=== PATIENT | female | born 1995 | race Caucasian/White ===

== ENCOUNTER 2016-12-02 17:26 | Emergency (ER) | payer SELFPAY ==
[~2016-12-02] VITALS: Ht 144.8 cm; Wt 60.0 kg
[2016-12-02 17:40] VITALS: BP 149/83
== END 2016-12-02 20:04 | disposition left against medical advice (07) ==
LOC: EMS 17:29
DX: F91.9 Conduct disorder, unspecified (principal); F12.90 Cannabis use, unspecified, uncomplicated; F17.210 Nicotine dependence, cigarettes, uncomplicated; Z53.21 Procedure and treatment not carried out due to patient leaving prior to being seen by health care provider

== ENCOUNTER 2016-12-03 14:27 | Inpatient (IN) | payer OTHER ==
[~2016-12-03] VITALS: Ht 152.4 cm; Wt 57.2 kg
[2016-12-03 14:46] LABS: BASOPHILS # (AUTO) 0.04 K/uL (0.00-0.20); BASOPHILS % (AUTO) 0.5 % (0.0-2.0); EOSINOPHILS # (AUTO) 0.09 K/uL (0.00-0.70); EOSINOPHILS % (AUTO) 1.09 % (1.0-6.0); HEMATOCRIT 41.8 % (36-46); HEMOGLOBIN 14.1 g/dL (12.0-16.0); LYMPHOCYTES # (AUTO) 3.2 K/uL (1.0-4.8); LYMPHOCYTES % (AUTO) 39.2 % (22.0-44.0); MEAN CORPUSCULAR HEMOGLOBIN 30.4 pg (26.0-34.0); MEAN CORPUSCULAR HGB CONC 33.7 G/dL (31.0-37.0); MEAN CORPUSCULAR VOLUME 90 fL (80-100); MONOCYTES # (AUTO) 0.3 K/uL (0.1-1.0); MONOCYTES % (AUTO) 3.2 % (2.0-9.0); NEUTROPHILS # (AUTO) 4.5 K/uL (1.8-7.7); PLATELET COUNT (AUTO) 272 K/uL (150-450); RED BLOOD CELL COUNT(AUTO) 4.63 MIL/uL (4.00-5.20); RED CELL DISTRIBUTION WIDTH 13.7 % (11.5-14.5); WHITE BLOOD COUNT (AUTO) 8.1 K/uL (4.5-11.0)
[2016-12-03 14:57] LABS: ANION GAP 12 mmol/L (8-16); CALCIUM, TOTAL 8.9 mg/dL (8.8-10.5); CARBON DIOXIDE 24 mmol/L (22-29); CHLORIDE 101 mmol/L (98-107); CREATININE 0.83 mg/dL (0.60-1.30); GLOMERULAR FILTR. RATE CALC > 60 mL/min (>60); POTASSIUM 3.5 mmol/L (3.5-5.1); SODIUM SERUM 137 mmol/L (136-145); UREA NITROGEN, BLOOD 11 mg/dL (7-18)
[2016-12-03 15:03] LABS: ALANINE AMINOTRANSFERASE 21 U/L (12-78); ALBUMIN 4.2 g/dL (3.4-5.0); ASPARTATE AMINOTRANSFERASE 24 U/L (15-37); BILIRUBIN,TOTAL 1.1 mg/dL (0.1-1.0); TOTAL PROTEIN, SERUM 7.7 g/dL (6.4-8.2)
[2016-12-03] MEDS ORDERED: LORazepam 2 MG/ML VIAL IM ONE (16:00)
[2016-12-03] MEDS ORDERED: HALOPERIDOL LACTATE 5 MG/ML VIAL IM ONE (16:00)
[2016-12-03] MEDS ORDERED: DiphenhydrAMINE HCL 50 MG/ML VIAL IM ONE (16:00)
[2016-12-03 16:43] LABS: CHOL/HDL RATIO 2.8 (3.9-5.7)
[2016-12-03 19:50] VITALS: BP 101/64
[2016-12-04 06:57] VITALS: BP 105/68
[2016-12-04 09:08] VITALS: BP 118/60
[2016-12-04 16:00] VITALS: BP 131/83
[2016-12-05 05:34] VITALS: BP 130/88
[2016-12-05 08:18] VITALS: BP 101/57
[2016-12-05] MEDS: SERTRALINE HCL 50 MG TABLET PO SCH (08:41)
[2016-12-05] MEDS: OLANZapine 5 MG TABLET PO SCH (08:41)
[2016-12-05 16:26] VITALS: BP 110/66
[2016-12-05] MEDS: ZOLPIDEM TARTRATE 10 MG TABLET PO PRN (22:47)
[2016-12-06 06:31] VITALS: BP 107/79
[2016-12-06] MEDS: SERTRALINE HCL 50 MG TABLET PO SCH (08:21)
[2016-12-06] MEDS: OLANZapine 5 MG TABLET PO SCH (08:21)
[2016-12-06 08:54] VITALS: BP 114/82
[2016-12-06 16:00] VITALS: BP 125/76
[2016-12-06] MEDS: ZOLPIDEM TARTRATE 10 MG TABLET PO PRN (21:13)
[2016-12-07 02:20] VITALS: BP 134/82
[2016-12-07] MEDS: LORazepam 2 MG TABLET PO PRN (02:21)
[2016-12-07 08:15] VITALS: BP 138/71
[2016-12-07] MEDS: SERTRALINE HCL 50 MG TABLET PO SCH (09:04)
[2016-12-07] MEDS: OLANZapine 5 MG TABLET PO SCH (09:04)
[2016-12-07 16:25] VITALS: BP 138/80
[2016-12-07] MEDS: ZOLPIDEM TARTRATE 10 MG TABLET PO PRN (21:04)
[2016-12-08 05:37] VITALS: BP 134/75
[2016-12-08] MEDS: OLANZapine 5 MG TABLET PO SCH ×2 (08:31→21:00)
[2016-12-08] MEDS: SERTRALINE HCL 50 MG TABLET PO SCH (08:31)
[2016-12-08 09:44] VITALS: BP 132/81
[2016-12-08 16:50] VITALS: BP 118/72
[2016-12-08] MEDS ORDERED: DiphenhydrAMINE HCL 50 MG/ML VIAL IM ONE (20:30)
[2016-12-08] MEDS ORDERED: HALOPERIDOL LACTATE 5 MG/ML VIAL IM ONE (20:30)
[2016-12-08] MEDS ORDERED: LORazepam 2 MG/ML VIAL IM ONE (20:30)
[2016-12-09 06:20] VITALS: BP 122/68
[2016-12-09 08:39] VITALS: BP 123/57
[2016-12-09] MEDS: OLANZapine 5 MG TABLET PO SCH (09:12)
[2016-12-09] MEDS: LORazepam 2 MG TABLET PO PRN (09:12)
[2016-12-09 16:20] VITALS: BP 141/71
[2016-12-09] MEDS: ZOLPIDEM TARTRATE 10 MG TABLET PO PRN (22:04)
[2016-12-10 06:00] VITALS: BP 128/79
[2016-12-10 08:26] VITALS: BP 117/54
[2016-12-10] MEDS ORDERED: FLUoxetine HCL 20 MG CAPSULE PO SCH (09:00)
[2016-12-10] MEDS ORDERED: DOCUSATE SODIUM 100 MG CAPSULE PO PRN (11:15)
[2016-12-10] MEDS: HALOPERIDOL 5 MG TABLET PO PRN (15:08)
[2016-12-10 16:15] VITALS: BP 142/67
[2016-12-10] MEDS: FLUoxetine HCL 20 MG CAPSULE PO SCH (20:33)
[2016-12-10] MEDS: OLANZapine 10 MG TABLET PO SCH (20:33)
[2016-12-11 05:43] VITALS: BP 129/70
[2016-12-11 08:46] VITALS: BP 124/62
[2016-12-11] MEDS ORDERED: NICOTINE 7 MG/24 HOUR PATCH TD ONE (09:45)
[2016-12-11 16:00] VITALS: BP 124/70
[2016-12-11] MEDS: LORazepam 2 MG TABLET PO PRN (16:22)
[2016-12-11] MEDS: HALOPERIDOL 5 MG TABLET PO PRN (16:22)
[2016-12-11] MEDS: FLUoxetine HCL 20 MG CAPSULE PO SCH (21:37)
[2016-12-11] MEDS: OLANZapine 10 MG TABLET PO SCH (21:37)
[2016-12-12 00:08] VITALS: BP 123/79
[2016-12-12] MEDS: ZOLPIDEM TARTRATE 10 MG TABLET PO PRN (00:08)
[2016-12-12 08:05] VITALS: BP 122/70
[2016-12-12] MEDS: LORazepam 2 MG TABLET PO PRN ×2 (13:56→22:39)
[2016-12-12 14:00] VITALS: BP 130/71
[2016-12-12] MEDS: HALOPERIDOL 5 MG TABLET PO PRN ×2 (16:35→22:39)
[2016-12-12 16:44] VITALS: BP 121/86
[2016-12-12] MEDS ORDERED: HALOPERIDOL LACTATE 5 MG/ML VIAL ONE (16:55)
[2016-12-12] MEDS ORDERED: LORazepam 2 MG/ML VIAL ONE (16:55)
[2016-12-12] MEDS ORDERED: DiphenhydrAMINE HCL 50 MG/ML VIAL ONE (16:55)
[2016-12-12] MEDS ORDERED: DiphenhydrAMINE HCL 50 MG/ML VIAL IM ONE (17:00)
[2016-12-12] MEDS ORDERED: HALOPERIDOL LACTATE 5 MG/ML VIAL IM ONE (17:00)
[2016-12-12] MEDS ORDERED: LORazepam 2 MG/ML VIAL IM ONE (17:00)
[2016-12-12] MEDS: OLANZapine 10 MG TABLET PO SCH (20:53)
[2016-12-12] MEDS: FLUoxetine HCL 20 MG CAPSULE PO SCH (20:56)
[2016-12-13 08:00] VITALS: BP 117/64
[2016-12-13] MEDS: LORazepam 2 MG TABLET PO PRN (08:45)
[2016-12-13] MEDS: HALOPERIDOL 5 MG TABLET PO PRN (09:00)
[2016-12-13] MEDS: DIVALPROEX SODIUM 500 MG DR TABLET PO SCH ×2 (09:45→17:05)
[2016-12-13] MEDS ORDERED: DIVALPROEX SODIUM 500 MG DR TABLET PO ONE (09:50)
[2016-12-13 16:22] VITALS: BP 133/70
[2016-12-13] MEDS: FLUoxetine HCL 20 MG CAPSULE PO SCH (20:10)
[2016-12-13] MEDS: OLANZapine 10 MG TABLET PO SCH (20:10)
[2016-12-13] MEDS: ZOLPIDEM TARTRATE 10 MG TABLET PO PRN (21:23)
[2016-12-14 03:27] VITALS: BP 126/77
[2016-12-14] MEDS: LORazepam 2 MG TABLET PO PRN ×3 (03:30→18:14)
[2016-12-14] MEDS: DIVALPROEX SODIUM 500 MG DR TABLET PO SCH ×2 (08:25→16:07)
[2016-12-14 08:44] VITALS: BP 105/63
[2016-12-14] MEDS ORDERED: BENZOCAINE 10% 7 GM GEL TP PRN (10:45)
[2016-12-14] MEDS ORDERED: MAG HYDROX/AL HYDROX/SIMETH 30 ML SUSP UDCUP PO PRN (16:15)
[2016-12-14 16:16] VITALS: BP 127/69
[2016-12-14] MEDS: FLUoxetine HCL 20 MG CAPSULE PO SCH (20:34)
[2016-12-14] MEDS: OLANZapine 10 MG TABLET PO SCH (20:34)
[2016-12-14] MEDS: ZOLPIDEM TARTRATE 10 MG TABLET PO PRN (20:34)
[2016-12-15 04:27] VITALS: BP 122/76
[2016-12-15] MEDS: LORazepam 2 MG TABLET PO PRN (08:09)
[2016-12-15] MEDS: DIVALPROEX SODIUM 500 MG DR TABLET PO SCH (08:09)
[2016-12-15 09:00] VITALS: BP 124/75
[2016-12-15] MEDS ORDERED: FLUO-191 PO (09:45)
[2016-12-15] MEDS ORDERED: DIVA500T35 PO (09:45)
[2016-12-15] MEDS ORDERED: OLAN10TA3 PO (09:45)
[2016-12-17 02:56] LABS: GC DNA N.A. AMPLIFY Negative (Negative)
== END 2016-12-15 12:30 | disposition home or self-care (01) | DRG 885 ==
LOC: EMS 14:28 → EEVIPCON 14:28 → B3A 18:46
PROVIDERS: ADMIT Psychiatry & Neurology Child & Adolescent Psychiatry; ATTEND Psychiatry & Neurology Child & Adolescent Psychiatry
DX: F31.64 Bipolar disorder, current episode mixed, severe, with psychotic features (principal); F41.9 Anxiety disorder, unspecified; Z79.899 Other long term (current) drug therapy; Z87.891 Personal history of nicotine dependence
CPT/HCPCS: 87491; 87591; 96372; 99285; G0480; J1200; J1630; J2060

== ENCOUNTER 2016-12-18 17:17 | Inpatient (IN) | payer OTHER ==
[~2016-12-18] VITALS: Ht 152.4 cm; Wt 59.1 kg
[~2016-12-18 17:17] MED LIST: DIVA500T35 PO; FLUO-191 PO; OLAN10TA3 PO
[2016-12-18 17:39] LABS: BASOPHILS % (AUTO) 0.4 % (0.0-2.0); EOSINOPHILS % (AUTO) 1.2 % (1.0-6.0); HEMATOCRIT 40.8 % (36-46); HEMOGLOBIN 13.8 g/dL (12.0-16.0); LYMPHOCYTES # (AUTO) 3.3 K/uL (1.0-4.8); LYMPHOCYTES % (AUTO) 32.9 % (22.0-44.0); MEAN CORPUSCULAR HEMOGLOBIN 30.3 pg (26.0-34.0); MEAN CORPUSCULAR HGB CONC 33.9 G/dL (31.0-37.0); MEAN CORPUSCULAR VOLUME 89 fL (80-100); MONOCYTES # (AUTO) 0.5 K/uL (0.1-1.0); MONOCYTES % (AUTO) 4.8 % (2.0-9.0); NEUTROPHILS # (AUTO) 6.1 K/uL (1.8-7.7); NEUTROPHILS % (AUTO) 60.7 % (40.0-70.0); PLATELET COUNT (AUTO) 303 K/uL (150-450); RED BLOOD CELL COUNT(AUTO) 4.56 MIL/uL (4.00-5.20); RED CELL DISTRIBUTION WIDTH 13.2 % (11.5-14.5)
[2016-12-18 17:48] LABS: ANION GAP 7 mmol/L (8-16); CARBON DIOXIDE 28 mmol/L (22-29); CHLORIDE 108 mmol/L (98-107); CREATININE 0.79 mg/dL (0.60-1.30); GLOMERULAR FILTR. RATE CALC > 60 mL/min (>60); POTASSIUM 4.3 mmol/L (3.5-5.1); SODIUM SERUM 143 mmol/L (136-145); UREA NITROGEN, BLOOD 13 mg/dL (7-18)
[2016-12-18 17:55] LABS: ALANINE AMINOTRANSFERASE 19 U/L (12-78); ASPARTATE AMINOTRANSFERASE 25 U/L (15-37); BILIRUBIN,TOTAL 0.4 mg/dL (0.1-1.0); TOTAL PROTEIN, SERUM 7.7 g/dL (6.4-8.2)
[2016-12-18] MEDS ORDERED: DiphenhydrAMINE HCL 50 MG/ML VIAL IM ONE (18:15)
[2016-12-18] MEDS ORDERED: LORazepam 2 MG/ML VIAL IM ONE (18:15)
[2016-12-18] MEDS ORDERED: HALOPERIDOL LACTATE 5 MG/ML VIAL IM ONE (18:15)
[2016-12-18] MEDS ORDERED: HALOPERIDOL 5 MG TABLET PO PRN (19:30)
[2016-12-18] MEDS ORDERED: ACETAMINOPHEN 325 MG TABLET PO PRN (19:30)
[2016-12-18] MEDS ORDERED: MAGNESIUM HYDROXIDE SUSPENSION 30 ML UDCUP PO PRN (19:30)
[2016-12-19] MEDS: LORazepam 2 MG TABLET PO PRN ×2 (01:43→20:36)
[2016-12-19 09:23] LABS: CHOL/HDL RATIO 3.3 (3.9-5.7)
[2016-12-19 16:13] VITALS: BP 122/69
[2016-12-19] MEDS: ZOLPIDEM TARTRATE 10 MG TABLET PO PRN (20:36)
[2016-12-20 05:19] VITALS: BP 130/82
[2016-12-20 08:03] VITALS: BP 127/68
[2016-12-20] MEDS: NICOTINE 7 MG/24 HOUR PATCH TD SCH (08:38)
[2016-12-20 16:00] VITALS: BP 133/80
[2016-12-20] MEDS: LORazepam 2 MG TABLET PO PRN (20:03)
[2016-12-20] MEDS: OLANZapine 10 MG TABLET PO SCH (20:03)
[2016-12-20] MEDS: ZOLPIDEM TARTRATE 10 MG TABLET PO PRN (20:38)
[2016-12-21 06:19] VITALS: BP 128/78
[2016-12-21 08:00] VITALS: BP 103/52
[2016-12-21] MEDS: DIVALPROEX SODIUM 500 MG DR TABLET PO SCH ×2 (09:13→16:48)
[2016-12-21] MEDS: NICOTINE 7 MG/24 HOUR PATCH TD SCH (09:13)
[2016-12-21] MEDS: LORazepam 2 MG TABLET PO PRN ×2 (09:15→16:48)
[2016-12-21 16:00] VITALS: BP 125/78
[2016-12-21] MEDS: OLANZapine 10 MG TABLET PO SCH (20:22)
[2016-12-21 21:30] VITALS: BP 115/75
[2016-12-21] MEDS: ZOLPIDEM TARTRATE 10 MG TABLET PO PRN (21:32)
[2016-12-22 02:31] VITALS: BP 126/70
[2016-12-22] MEDS: LORazepam 2 MG TABLET PO PRN ×2 (02:38→16:02)
[2016-12-22 08:19] VITALS: BP 127/81
[2016-12-22] MEDS: DIVALPROEX SODIUM 500 MG DR TABLET PO SCH ×2 (09:12→16:02)
[2016-12-22] MEDS: NICOTINE 7 MG/24 HOUR PATCH TD SCH (09:16)
[2016-12-22 16:17] VITALS: BP 114/84
[2016-12-22] MEDS: OLANZapine 10 MG TABLET PO SCH (20:12)
[2016-12-22] MEDS: ZOLPIDEM TARTRATE 10 MG TABLET PO PRN (21:04)
[2016-12-22] MEDS: MAG HYDROX/AL HYDROX/SIMETH ES 30 ML SUSPENSION UDCUP PO PRN (21:42)
[2016-12-23 02:01] VITALS: BP 125/67
[2016-12-23 08:11] VITALS: BP 133/74
[2016-12-23] MEDS: NICOTINE 7 MG/24 HOUR PATCH TD SCH ×2 (09:00→10:39)
[2016-12-23] MEDS: DIVALPROEX SODIUM 500 MG DR TABLET PO SCH ×2 (10:38→16:20)
[2016-12-23 16:05] VITALS: BP 111/67
[2016-12-23] MEDS: LORazepam 2 MG TABLET PO PRN (16:20)
[2016-12-23] MEDS: ZOLPIDEM TARTRATE 10 MG TABLET PO PRN (20:21)
[2016-12-23] MEDS: OLANZapine 10 MG TABLET PO SCH (20:21)
[2016-12-24 06:06] VITALS: BP 114/63
[2016-12-24 08:21] VITALS: BP 133/71
[2016-12-24] MEDS: DIVALPROEX SODIUM 500 MG DR TABLET PO SCH ×2 (09:00→16:16)
[2016-12-24] MEDS: NICOTINE 7 MG/24 HOUR PATCH TD SCH (09:00)
[2016-12-24 16:07] VITALS: BP 129/73
[2016-12-24] MEDS: LORazepam 2 MG TABLET PO PRN (16:16)
[2016-12-24] MEDS: OLANZapine 10 MG TABLET PO SCH (20:27)
[2016-12-24] MEDS: ZOLPIDEM TARTRATE 10 MG TABLET PO PRN (20:27)
[2016-12-25 01:31] VITALS: BP 136/88
[2016-12-25] MEDS: LORazepam 2 MG TABLET PO PRN ×2 (01:33→16:23)
[2016-12-25] MEDS: MAG HYDROX/AL HYDROX/SIMETH ES 30 ML SUSPENSION UDCUP PO PRN (01:33)
[2016-12-25 08:09] VITALS: BP 117/61
[2016-12-25] MEDS: DIVALPROEX SODIUM 500 MG DR TABLET PO SCH ×2 (08:55→16:23)
[2016-12-25] MEDS: NICOTINE 7 MG/24 HOUR PATCH TD SCH (08:55)
[2016-12-25 16:09] VITALS: BP 122/69
[2016-12-25] MEDS: ZOLPIDEM TARTRATE 10 MG TABLET PO PRN (20:24)
[2016-12-25] MEDS: OLANZapine 10 MG TABLET PO SCH (20:24)
[2016-12-26 00:36] VITALS: BP 127/67
[2016-12-26] MEDS: LORazepam 2 MG TABLET PO PRN (02:35)
[2016-12-26 09:00] VITALS: BP 110/66
[2016-12-26] MEDS: DIVALPROEX SODIUM 500 MG DR TABLET PO SCH ×2 (09:06→16:05)
[2016-12-26] MEDS: NICOTINE 7 MG/24 HOUR PATCH TD SCH (09:09)
[2016-12-26 16:07] VITALS: BP 124/70
[2016-12-26] MEDS: MAG HYDROX/AL HYDROX/SIMETH ES 30 ML SUSPENSION UDCUP PO PRN (16:45)
[2016-12-26] MEDS: OLANZapine 10 MG TABLET PO SCH (20:09)
[2016-12-26] MEDS: ZOLPIDEM TARTRATE 10 MG TABLET PO PRN (20:09)
[2016-12-27] MEDS: LORazepam 2 MG TABLET PO PRN (00:31)
[2016-12-27 00:47] VITALS: BP 121/63
[2016-12-27 06:42] LABS: GC DNA N.A. AMPLIFY Negative (Negative)
[2016-12-27 08:47] VITALS: BP 138/87
[2016-12-27] MEDS: DIVALPROEX SODIUM 500 MG DR TABLET PO SCH (08:50)
[2016-12-27] MEDS: NICOTINE 7 MG/24 HOUR PATCH TD SCH (08:51)
== END 2016-12-27 13:30 | disposition left against medical advice (07) | DRG 885 ==
LOC: EEVIPCON 17:18 → EMS 17:18 → B3A 12-19 13:35
DX: F31.2 Bipolar disorder, current episode manic severe with psychotic features (principal); R45.851 Suicidal ideations; F10.10 Alcohol abuse, uncomplicated; Z53.21 Procedure and treatment not carried out due to patient leaving prior to being seen by health care provider; F12.90 Cannabis use, unspecified, uncomplicated; F41.9 Anxiety disorder, unspecified; F17.210 Nicotine dependence, cigarettes, uncomplicated; Z71.6 Tobacco abuse counseling; Z71.41 Alcohol abuse counseling and surveillance of alcoholic; F19.10 Other psychoactive substance abuse, uncomplicated
CPT/HCPCS: 87081; 87491; 87591; 96372; 99291; G0480; J1200; J1630; J2060

== ENCOUNTER 2017-01-02 19:03 | Inpatient (IN) | payer OTHER ==
[~2017-01-02] VITALS: Ht 144.8 cm; Wt 63.5 kg
[~2017-01-02 19:03] MED LIST changes: -FLUO-191 PO
[2017-01-03] MEDS ORDERED: HALOPERIDOL 5 MG TABLET PO PRN (00:15)
[2017-01-03 00:45] VITALS: BP 118/67
[2017-01-03 08:23] VITALS: BP 111/72
[2017-01-03 16:14] VITALS: BP 112/64
[2017-01-03] MEDS: DIVALPROEX SODIUM 500 MG DR TABLET PO SCH (17:00)
[2017-01-03] MEDS: OLANZapine 10 MG TABLET PO SCH (20:08)
[2017-01-03] MEDS: ZOLPIDEM TARTRATE 10 MG TABLET PO PRN (20:08)
[2017-01-04 03:37] VITALS: BP 110/82
[2017-01-04 08:10] LABS: BASOPHILS % (AUTO) 0.6 % (0.0-2.0); EOSINOPHILS % (AUTO) 2.2 % (1.0-6.0); HEMOGLOBIN 12.4 g/dL (12.0-16.0); LYMPHOCYTES # (AUTO) 2.8 K/uL (1.0-4.8); LYMPHOCYTES % (AUTO) 25.7 % (22.0-44.0); MEAN CORPUSCULAR HEMOGLOBIN 30.4 pg (26.0-34.0); MEAN CORPUSCULAR HGB CONC 33.6 G/dL (31.0-37.0); MEAN CORPUSCULAR VOLUME 91 fL (80-100); MONOCYTES # (AUTO) 0.9 K/uL (0.1-1.0); MONOCYTES % (AUTO) 8.1 % (2.0-9.0); NEUTROPHILS # (AUTO) 6.9 K/uL (1.8-7.7); NEUTROPHILS % (AUTO) 63.4 % (40.0-70.0); PLATELET COUNT (AUTO) 265 K/uL (150-450); RED BLOOD CELL COUNT(AUTO) 4.09 MIL/uL (4.00-5.20); RED CELL DISTRIBUTION WIDTH 13.5 % (11.5-14.5); WHITE BLOOD COUNT (AUTO) 10.8 K/uL (4.5-11.0)
[2017-01-04 08:42] LABS: HEMOGLOBIN A1C 5.4 % (4.5-6.2)
[2017-01-04 08:46] LABS: ALANINE AMINOTRANSFERASE 45 U/L (12-78); ALBUMIN 3.2 g/dL (3.4-5.0); ANION GAP 9 mmol/L (8-16); ASPARTATE AMINOTRANSFERASE 26 U/L (15-37); BILIRUBIN,TOTAL 0.3 mg/dL (0.1-1.0); CALCIUM, TOTAL 8.4 mg/dL (8.8-10.5); CARBON DIOXIDE 27 mmol/L (22-29); CHLORIDE 104 mmol/L (98-107); CHOL/HDL RATIO 3.2 (3.9-5.7); CREATININE 0.61 mg/dL (0.60-1.30); GLOMERULAR FILTR. RATE CALC > 60 mL/min (>60); POTASSIUM 4.1 mmol/L (3.5-5.1); SODIUM SERUM 140 mmol/L (136-145); THYROID STIMULATING HORMONE 1.58 uIU/mL (0.36-3.74); TOTAL PROTEIN, SERUM 6.2 g/dL (6.4-8.2); UREA NITROGEN, BLOOD 12 mg/dL (7-18)
[2017-01-04 08:52] VITALS: BP 130/68
[2017-01-04] MEDS: DIVALPROEX SODIUM 500 MG DR TABLET PO SCH ×2 (09:46→17:00)
[2017-01-04 16:24] VITALS: BP 113/69
[2017-01-04] MEDS: OLANZapine 10 MG TABLET PO SCH (20:14)
[2017-01-04] MEDS: ZOLPIDEM TARTRATE 10 MG TABLET PO PRN (20:38)
[2017-01-05 06:15] VITALS: BP 123/75
[2017-01-05 08:18] VITALS: BP 127/74
[2017-01-05] MEDS: DIVALPROEX SODIUM 500 MG DR TABLET PO SCH ×2 (08:26→17:00)
[2017-01-05] MEDS: OLANZapine 5 MG TABLET PO SCH (10:41)
[2017-01-05 16:04] VITALS: BP 112/65
[2017-01-05] MEDS: OLANZapine 10 MG TABLET PO SCH (20:08)
[2017-01-05] MEDS: ZOLPIDEM TARTRATE 10 MG TABLET PO PRN (21:00)
[2017-01-06 03:39] VITALS: BP 120/68
[2017-01-06] MEDS: DIVALPROEX SODIUM 500 MG DR TABLET PO SCH ×3 (08:14→17:00)
[2017-01-06] MEDS: LORazepam 1 MG TABLET PO PRN (08:14)
[2017-01-06] MEDS: OLANZapine 5 MG TABLET PO SCH (08:14)
[2017-01-06 08:25] VITALS: BP 118/86
[2017-01-06 16:14] VITALS: BP 117/83
[2017-01-06] MEDS: OLANZapine 10 MG TABLET PO SCH (20:21)
[2017-01-06] MEDS: ZOLPIDEM TARTRATE 10 MG TABLET PO PRN (20:21)
[2017-01-07 01:22] VITALS: BP 118/79
[2017-01-07 08:07] VITALS: BP 116/78
[2017-01-07] MEDS: LORazepam 1 MG TABLET PO PRN (08:31)
[2017-01-07] MEDS: OLANZapine 5 MG TABLET PO SCH (08:31)
[2017-01-07] MEDS: DIVALPROEX SODIUM 500 MG DR TABLET PO SCH ×2 (08:31→16:41)
[2017-01-07 16:13] VITALS: BP 117/68
[2017-01-07] MEDS: ZOLPIDEM TARTRATE 10 MG TABLET PO PRN (20:39)
[2017-01-07] MEDS: OLANZapine 10 MG TABLET PO SCH (20:39)
[2017-01-08 03:55] VITALS: BP 118/76
[2017-01-08] MEDS: OLANZapine 5 MG TABLET PO SCH (08:28)
[2017-01-08] MEDS: DIVALPROEX SODIUM 500 MG DR TABLET PO SCH ×3 (08:29→17:25)
[2017-01-08 08:30] VITALS: BP 120/74
[2017-01-08] MEDS: LORazepam 1 MG TABLET PO PRN (16:13)
[2017-01-08 16:17] VITALS: BP 129/77
[2017-01-08] MEDS: ZOLPIDEM TARTRATE 10 MG TABLET PO PRN (20:36)
[2017-01-08] MEDS: OLANZapine 10 MG TABLET PO SCH (20:36)
[2017-01-09 00:54] VITALS: BP 130/74
[2017-01-09] MEDS: LORazepam 1 MG TABLET PO PRN (02:58)
[2017-01-09 08:13] VITALS: BP 106/71
[2017-01-09] MEDS: OLANZapine 5 MG TABLET PO SCH (08:21)
[2017-01-09] MEDS: DIVALPROEX SODIUM 500 MG DR TABLET PO SCH (08:22)
[2017-01-09] MEDS ORDERED: OLAN5TAB2 PO (09:13)
== END 2017-01-09 13:30 | disposition home or self-care (01) | DRG 885 ==
LOC: B3A 01-03 00:50
DX: F31.2 Bipolar disorder, current episode manic severe with psychotic features (principal)
CPT/HCPCS: 83036; 84436; 84439; 84443; 87081

== ENCOUNTER 2019-12-06 00:26 | Inpatient (IN) | payer MEDICAID, OTHER ==
[~2019-12-06] VITALS: Ht 144.8 cm; Wt 62.8 kg
[~2019-12-06 00:26] MED LIST changes: +DIVA-112 PO; -DIVA500T35 PO; +OLAN5TAB2 PO
[2019-12-06] MEDS ORDERED: LITH8SOL6 PO (01:23)
[2019-12-06] MEDS ORDERED: RISP0.5T20 PO (01:24)
[2019-12-06] MEDS ORDERED: HALOPERIDOL LACTATE 5 MG/ML VIAL IM ONE (05:00)
[2019-12-06] MEDS ORDERED: DiphenhydrAMINE HCL 50 MG/ML VIAL IM ONE (05:00)
[2019-12-06] MEDS ORDERED: ACETAMINOPHEN 325 MG TABLET PO PRN (07:45)
[2019-12-06] MEDS ORDERED: GuaiFENesin/D-METHORPHAN [SUGAR-FREE] 200-20MG/10 ML SYRUP UDCUP PO PRN (07:45)
[2019-12-06] MEDS ORDERED: LOPERAMIDE HCL 2 MG CAPSULE PO PRN (07:45)
[2019-12-06] MEDS ORDERED: PETROLATUM,WHITE 28 GM JELLY TP PRN (07:45)
[2019-12-06] MEDS ORDERED: MAG HYDROX/AL HYDROX/SIMETH ES 30 ML SUSPENSION UDCUP PO PRN (07:45)
[2019-12-06] MEDS ORDERED: ALBUTEROL SULFATE HFA 90 MCG/PUFF 8 GM INHALER IH PRN (07:45)
[2019-12-06] MEDS ORDERED: ONDANSETRON HCL 4 MG TABLET PO PRN (07:45)
[2019-12-06] MEDS ORDERED: MAGNESIUM HYDROXIDE SUSPENSION 30 ML UDCUP PO PRN (07:45)
[2019-12-06] MEDS ORDERED: NICOTINE 14 MG/24 HOUR PATCH TD PRN (07:45)
[2019-12-06] MEDS ORDERED: DOCUSATE SODIUM 100 MG CAPSULE PO PRN (07:45)
[2019-12-06] MEDS ORDERED: CloNIDine HCL 0.1 MG TABLET PO PRN (07:45)
[2019-12-06] MEDS ORDERED: IBUPROFEN 400 MG TABLET PO PRN (07:45)
[2019-12-06 08:13] VITALS: BP 115/70
[2019-12-06 16:14] VITALS: BP 118/70
[2019-12-06] MEDS: LITHIUM CARBONATE 300 MG CAPSULE PO SCH (18:17)
[2019-12-06] MEDS: RisperiDONE 1 MG TABLET PO SCH (18:17)
[2019-12-06] MEDS: LORazepam 2 MG TABLET PO PRN (21:36)
[2019-12-06] MEDS: HALOPERIDOL 5 MG TABLET PO PRN (21:36)
[2019-12-07 06:10] VITALS: BP 117/85
[2019-12-07 08:29] VITALS: BP 114/72
[2019-12-07] MEDS: LITHIUM CARBONATE 300 MG CAPSULE PO SCH ×2 (08:33→17:02)
[2019-12-07] MEDS: LORazepam 2 MG TABLET PO PRN (08:33)
[2019-12-07] MEDS: RisperiDONE 1 MG TABLET PO SCH ×2 (08:33→17:02)
[2019-12-07 19:11] VITALS: BP 117/72
[2019-12-07] MEDS: ZOLPIDEM TARTRATE 10 MG TABLET PO PRN (21:07)
[2019-12-08 01:52] VITALS: BP 110/74
[2019-12-08 08:24] VITALS: BP 119/70
[2019-12-08] MEDS: RisperiDONE 1 MG TABLET PO SCH ×2 (08:29→16:20)
[2019-12-08] MEDS: LORazepam 2 MG TABLET PO PRN (08:29)
[2019-12-08] MEDS: LITHIUM CARBONATE 300 MG CAPSULE PO SCH ×2 (08:29→16:20)
[2019-12-08 16:07] VITALS: BP 130/75
[2019-12-08] MEDS: ZOLPIDEM TARTRATE 10 MG TABLET PO PRN (20:44)
[2019-12-09 02:13] VITALS: BP 115/70
[2019-12-09 08:14] VITALS: BP 110/60
[2019-12-09] MEDS: LORazepam 2 MG TABLET PO PRN (08:31)
[2019-12-09] MEDS: LITHIUM CARBONATE 300 MG CAPSULE PO SCH ×2 (08:31→16:46)
[2019-12-09] MEDS: RisperiDONE 1 MG TABLET PO SCH ×2 (08:31→16:45)
[2019-12-09 16:11] VITALS: BP 112/66
[2019-12-09] MEDS: HALOPERIDOL 5 MG TABLET PO PRN (16:46)
[2019-12-10 03:51] VITALS: BP 114/65
[2019-12-10] MEDS: LITHIUM CARBONATE 300 MG CAPSULE PO SCH (08:13)
[2019-12-10] MEDS: RisperiDONE 1 MG TABLET PO SCH (08:13)
[2019-12-10] MEDS: LORazepam 2 MG TABLET PO PRN (08:13)
[2019-12-10] MEDS: HALOPERIDOL 5 MG TABLET PO PRN (08:13)
[2019-12-10 10:09] VITALS: BP 103/56
[2019-12-10] MEDS ORDERED: LITH300C3 PO (13:51)
[2019-12-10] MEDS ORDERED: RISP0.5T20 PO (13:51)
== END 2019-12-10 16:00 | disposition home or self-care (01) | DRG 750 ==
LOC: EMS 00:26 → B3A 03:01
PROVIDERS: ADMIT Psychiatry & Neurology Psychiatry; ATTEND Psychiatry & Neurology Psychiatry
DX: F25.0 Schizoaffective disorder, bipolar type (principal); F10.10 Alcohol abuse, uncomplicated; F17.200 Nicotine dependence, unspecified, uncomplicated; G43.909 Migraine, unspecified, not intractable, without status migrainosus; R45.851 Suicidal ideations; F19.10 Other psychoactive substance abuse, uncomplicated; Z78.1 Physical restraint status
CPT/HCPCS: 99291; Z7502; Z7610

== ENCOUNTER 2024-02-12 11:18 | Inpatient (IN) | payer MEDICAID ==
[~2024-02-12] VITALS: Ht 141 cm; Wt 66.4 kg
[~2024-02-12 11:18] MED LIST changes: -DIVA-112 PO; +LITH300C3 PO; -OLAN10TA3 PO; -OLAN5TAB2 PO; +RISP0.5T39 PO
[2024-02-12 12:34] LABS: COVID AG,FIA SOURCE NASAL SWAB
[2024-02-12 12:55] LABS: SARS-COV2 (COVID) ANTIGEN,FIA Negative (Negative)
[2024-02-12] MEDS ORDERED: DiphenhydrAMINE HCL 50 MG/ML VIAL ONE (13:23)
[2024-02-12] MEDS ORDERED: HALOPERIDOL LACTATE 5 MG/ML VIAL ONE (13:23)
[2024-02-12] MEDS ORDERED: LORazepam 2 MG/ML VIAL ONE (13:23)
[2024-02-12] MEDS: LORazepam 2 MG/ML VIAL IM ONE (13:34)
[2024-02-12] MEDS: HALOPERIDOL LACTATE 5 MG/ML VIAL IM ONE (13:34)
[2024-02-12] MEDS: DiphenhydrAMINE HCL 50 MG/ML VIAL IM ONE (13:35)
[2024-02-12 14:49] LABS: BASOPHILS % (AUTO) 0.7 % (0.0-2.0); EOSINOPHILS % (AUTO) 0.1 % (1.0-6.0); HEMATOCRIT 37.4 % (36-46); HEMOGLOBIN 12.5 g/dL (12.0-16.0); LYMPHOCYTES # (AUTO) 1.7 K/uL (1.0-4.8); MEAN CORPUSCULAR HEMOGLOBIN 30.3 pg (26.0-34.0); MEAN CORPUSCULAR HGB CONC 33.4 G/dL (31.0-37.0); MEAN CORPUSCULAR VOLUME 91 fL (80-100); MONOCYTES # (AUTO) 0.4 K/uL (0.1-1.0); MONOCYTES % (AUTO) 4.6 % (2.0-9.0); NEUTROPHILS % (AUTO) 73.6 % (40.0-70.0); PLATELET COUNT (AUTO) 269 K/uL (150-450); RED BLOOD CELL COUNT(AUTO) 4.12 MIL/uL (4.00-5.20); RED CELL DISTRIBUTION WIDTH 12.9 % (11.5-14.5); WHITE BLOOD COUNT (AUTO) 8.1 K/uL (4.5-11.0)
[2024-02-12 15:12] LABS: ANION GAP 9 mmol/L (8-16); CALCIUM, TOTAL 8.5 mg/dL (8.8-10.5); CARBON DIOXIDE 25 mmol/L (22-29); CHLORIDE 105 mmol/L (98-107); CREATININE 0.72 mg/dL (0.60-1.30); GLOMERULAR FILTR. RATE CALC > 60 mL/min (>60); GLUCOSE,RANDOM 102 mg/dL (70-110); POTASSIUM 3.2 mmol/L (3.5-5.1); SODIUM SERUM 139 mmol/L (136-145); UREA NITROGEN, BLOOD 10 mg/dL (7-18)
[2024-02-12 15:14] LABS: HCG,QUANTITATIVE < 1 mIU/mL (0-6)
[2024-02-12 15:42] LABS: ALCOHOL, BLOOD (SERUM) < 3 mg/dL (0-10)
[2024-02-12] MEDS ORDERED: GuaiFENesin/D-METHORPHAN [SUGAR-FREE] 200-20MG/10 ML SYRUP UDCUP PO PRN (16:15)
[2024-02-12] MEDS ORDERED: OLANZapine 5 MG RAPDIS TABLET PO PRN (16:15)
[2024-02-12] MEDS ORDERED: MAG HYDROX/ALUMINUM HYD/SIMETH ES 30 ML SUSPENSION UDCUP PO PRN (16:15)
[2024-02-12] MEDS ORDERED: ZOLPIDEM TARTRATE 10 MG TABLET PO PRN (16:15)
[2024-02-12] MEDS ORDERED: ACETAMINOPHEN 325 MG TABLET PO PRN (16:15)
[2024-02-12] MEDS ORDERED: LOPERAMIDE HCL 2 MG CAPSULE PO PRN (16:15)
[2024-02-12] MEDS ORDERED: MELATONIN 5 MG TABLET PO PRN (16:15)
[2024-02-12] MEDS ORDERED: PROMETHAZINE HCL 25 MG TABLET PO PRN (16:15)
[2024-02-12] MEDS ORDERED: TUBERCULIN, PURIFIED PROTEIN DERIVATIVE 5 TU/0.1 ML SYRINGE ID ONE (16:15)
[2024-02-12] MEDS ORDERED: ZOLPIDEM TARTRATE 5 MG TABLET PO PRN (16:15)
[2024-02-12] MEDS ORDERED: BENZ-247 PO (16:52)
[2024-02-12] MEDS ORDERED: LITH450T25 PO (16:52)
[2024-02-12] MEDS ORDERED: QUET100T34 PO (16:52)
[2024-02-12] MEDS: POTASSIUM CHLORIDE 20 MEQ ER TABLET PO ONE (18:28)
[2024-02-12 18:29] VITALS: O2SAT 98
[2024-02-12] MEDS: THIAMINE 100 MG TABLET PO SCH (19:02)
[2024-02-12] MEDS: DIVALPROEX SODIUM 250 MG ER TABLET PO SCH (21:00)
[2024-02-12] MEDS: OLANZapine 5 MG RAPDIS TABLET PO SCH (21:00)
[2024-02-13 06:25] VITALS: BP 140/86; PULSE 99; RESP 18; TEMP 97.6
[2024-02-13 08:08] VITALS: RESP 16
[2024-02-13] MEDS: FOLIC ACID 1 MG TABLET PO SCH (09:00)
[2024-02-13] MEDS ORDERED: PALIPERIDONE PALMITATE 234 MG/1.5 ML SYRINGE IM ONE (09:00)
[2024-02-13] MEDS: MULTIVITAMINS WITH MINERALS, THERAPEUTIC TABLET PO SCH (09:00)
[2024-02-13] MEDS: NALTREXONE HCL 50 MG TABLET PO SCH (09:00)
[2024-02-13] MEDS: POTASSIUM CHLORIDE 20 MEQ ER TABLET PO ONE ×2 (11:11→21:00)
[2024-02-13 15:21] VITALS: RESP 18
[2024-02-13] MEDS: INFLUENZA VIRUS VACCINE TVS (6MO+) 2024-25/PF 45 MCG/0.5 ML SYRINGE IM. ONE (21:01)
[2024-02-14] MEDS: LORazepam 2 MG TABLET PO PRN (08:17)
[2024-02-14] MEDS: HydrOXYzine PAMOATE 50 MG CAPSULE PO PRN (08:18)
[2024-02-14 08:23] VITALS: RESP 18
[2024-02-14] MEDS: POTASSIUM CHLORIDE 20 MEQ ER TABLET PO ONE (09:00)
[2024-02-14] MEDS: TRIHEXYPHENIDYL HCL 2 MG TABLET PO ONE (15:15)
[2024-02-14] MEDS ORDERED: LURASIDONE HCL 20 MG TABLET PO PRN (15:15)
[2024-02-14] MEDS: DiphenhydrAMINE HCL 50 MG/ML VIAL IM ONE (15:15)
[2024-02-14] MEDS: LURASIDONE HCL 40 MG TABLET PO SCH (17:00)
[2024-02-14 20:29] VITALS: BP 123/64; PULSE 74; RESP 18; TEMP 97.5; O2SAT 98
[2024-02-14] MEDS: TRIHEXYPHENIDYL HCL 2 MG TABLET PO SCH (21:00)
[2024-02-15 08:04] VITALS: RESP 18
[2024-02-15] MEDS ORDERED: LORazepam 2 MG/ML VIAL ONE (23:22)
[2024-02-15] MEDS ORDERED: DiphenhydrAMINE HCL 50 MG/ML VIAL ONE (23:23)
[2024-02-15] MEDS ORDERED: HALOPERIDOL LACTATE 5 MG/ML VIAL ONE (23:23)
[2024-02-15] MEDS: DiphenhydrAMINE HCL 50 MG/ML VIAL IM ONE (23:33)
[2024-02-15] MEDS: HALOPERIDOL LACTATE 5 MG/ML VIAL IM ONE (23:34)
[2024-02-15] MEDS: LORazepam 2 MG/ML VIAL IM ONE (23:34)
[2024-02-16 08:04] VITALS: BP 130/76; PULSE 100; RESP 16; TEMP 97.8; O2SAT 99
[2024-02-16 20:21] VITALS: BP 127/83; PULSE 84; RESP 18; TEMP 97.9; O2SAT 98
[2024-02-17] MEDS ORDERED: PALIPERIDONE PALMITATE 156 MG/ML SYRINGE IM ONE (09:00)
[2024-02-17] MEDS ORDERED: BACITRACIN 28 GM OINTMENT TP PRN (11:45)
[2024-02-18 08:02] VITALS: BP 133/74; PULSE 96; RESP 17; TEMP 97; O2SAT 98
[2024-02-18 21:03] VITALS: BP 123/79; PULSE 84; RESP 18; TEMP 97.6; O2SAT 98
[2024-02-18] MEDS ORDERED: LORazepam 2 MG/ML VIAL ONE (23:17)
[2024-02-18] MEDS ORDERED: DiphenhydrAMINE HCL 50 MG/ML VIAL ONE (23:17)
[2024-02-18] MEDS ORDERED: ChlorproMAZINE HCL 50 MG/2 ML AMP ONE (23:17)
[2024-02-19] MEDS: LORazepam 2 MG/ML VIAL IM ONE (00:06)
[2024-02-19] MEDS: ChlorproMAZINE HCL 50 MG/2 ML AMP IM ONE (00:07)
[2024-02-19] MEDS: DiphenhydrAMINE HCL 50 MG/ML VIAL IM ONE (00:09)
[2024-02-19 20:39] VITALS: RESP 18
[2024-02-20 08:03] VITALS: RESP 18
[2024-02-20] MEDS ORDERED: HALOPERIDOL LACTATE 5 MG/ML VIAL IM PRN (16:30)
[2024-02-20] MEDS: OLANZapine 5 MG TABLET PO SCH (17:43)
[2024-02-20 20:05] VITALS: BP 121/67; PULSE 94; RESP 18; TEMP 97.5
[2024-02-21 08:03] VITALS: RESP 16
[2024-02-21] MEDS ORDERED: LORazepam 2 MG/ML VIAL ONE (13:02)
[2024-02-21] MEDS ORDERED: DiphenhydrAMINE HCL 50 MG/ML VIAL ONE (13:03)
[2024-02-21] MEDS: LORazepam 2 MG/ML VIAL IM ONE (13:27)
[2024-02-21] MEDS: HALOPERIDOL LACTATE 5 MG/ML VIAL IM ONE (13:28)
[2024-02-21] MEDS: DiphenhydrAMINE HCL 50 MG/ML VIAL IM ONE (13:28)
[2024-02-21 20:23] VITALS: RESP 18
[2024-02-22 08:05] VITALS: RESP 16
[2024-02-22] MEDS: OLANZapine 5 MG TABLET PO SCH (09:00)
[2024-02-22] MEDS: TRIHEXYPHENIDYL HCL 5 MG TABLET PO SCH (09:00)
[2024-02-22] MEDS: HALOPERIDOL LACTATE 5 MG/ML VIAL IM PRN ×2 (11:16→16:14)
[2024-02-22 20:59] VITALS: RESP 15
[2024-02-23] MEDS: BENZTROPINE MESYLATE 2 MG TABLET PO SCH (08:04)
[2024-02-23 10:41] VITALS: RESP 17
[2024-02-23] MEDS: LORazepam 2 MG/ML VIAL IM ONE ×2 (14:36→19:20)
[2024-02-23] MEDS: DiphenhydrAMINE HCL 50 MG/ML VIAL IM ONE ×3 (14:36→19:20)
[2024-02-23] MEDS ORDERED: ChlorproMAZINE HCL 50 MG/2 ML AMP ONE (18:39)
[2024-02-23] MEDS: ChlorproMAZINE HCL 50 MG/2 ML AMP IM ONE (19:20)
[2024-02-24 08:01] VITALS: RESP 16
[2024-02-24] MEDS ORDERED: ChlorproMAZINE HCL 100 MG TABLET PO PRN (16:00)
[2024-02-24 20:00] VITALS: RESP 18
[2024-02-24] MEDS: ChlorproMAZINE HCL 100 MG TABLET PO SCH (20:00)
[2024-02-24] MEDS: LITHIUM CITRATE SOLUTION 8 MEQ/5 ML [8 MEQ = 300 MG] UDCUP PO SCH (21:00)
[2024-02-24] MEDS ORDERED: ChlorproMAZINE HCL 50 MG/2 ML AMP ONE (22:26)
[2024-02-24] MEDS: LORazepam 2 MG/ML VIAL IM ONE (22:48)
[2024-02-24] MEDS: DiphenhydrAMINE HCL 50 MG/ML VIAL IM ONE (22:48)
[2024-02-24] MEDS: ChlorproMAZINE HCL 50 MG/2 ML AMP IM ONE (22:49)
[2024-02-25 08:07] VITALS: BP 121/77; PULSE 70; RESP 18; TEMP 97.9; O2SAT 100
[2024-02-25 20:29] VITALS: RESP 18
[2024-02-26] MEDS: DiphenhydrAMINE HCL 50 MG/ML VIAL IM ONE (05:40)
[2024-02-26] MEDS: LORazepam 2 MG/ML VIAL IM ONE (05:40)
[2024-02-26] MEDS: ChlorproMAZINE HCL 50 MG/2 ML AMP IM ONE (05:40)
[2024-02-26 08:15] VITALS: RESP 16
[2024-02-26] MEDS: OLANZapine 5 MG TABLET PO SCH (08:15)
[2024-02-26 20:11] VITALS: BP 128/77; PULSE 100; RESP 18; TEMP 97.7; O2SAT 98
[2024-02-26] MEDS: ChlorproMAZINE HCL 100 MG TABLET PO SCH (20:22)
[2024-02-26] MEDS: HALOPERIDOL LACTATE 5 MG/ML VIAL IM PRN (20:37)
[2024-02-27 08:24] VITALS: RESP 17
[2024-02-27] MEDS ORDERED: FluPHENAZine HCL 2.5 MG/ML INJ IM PRN (11:30)
[2024-02-27 20:04] VITALS: RESP 16
[2024-02-27] MEDS ORDERED: FluPHENAZine HCL 10 MG TABLET PO SCH (21:00)
[2024-02-27] MEDS: ChlorproMAZINE HCL 50 MG/2 ML AMP IM PRN (21:06)
[2024-02-28 08:13] VITALS: BP 118/74; PULSE 92; RESP 18; TEMP 97.6; O2SAT 97
[2024-02-28] MEDS: RisperiDONE 1 MG TABLET PO SCH (16:00)
[2024-02-28] MEDS: DiphenhydrAMINE HCL 50 MG/ML VIAL IM ONE (16:36)
[2024-02-28] MEDS: ChlorproMAZINE HCL 50 MG/2 ML AMP IM ONE (16:37)
[2024-02-28] MEDS: LORazepam 2 MG/ML VIAL IM ONE (16:37)
[2024-02-29 10:05] VITALS: RESP 18
[2024-02-29] MEDS ORDERED: DiphenhydrAMINE HCL 50 MG/ML VIAL ONE (13:57)
[2024-02-29] MEDS ORDERED: LORazepam 2 MG/ML VIAL ONE (13:57)
[2024-02-29] MEDS ORDERED: HALOPERIDOL LACTATE 5 MG/ML VIAL ONE (13:57)
[2024-02-29] MEDS: LORazepam 2 MG/ML VIAL IM ONE (14:23)
[2024-02-29] MEDS: DiphenhydrAMINE HCL 50 MG/ML VIAL IM ONE (14:23)
[2024-02-29] MEDS: HALOPERIDOL LACTATE 5 MG/ML VIAL IM ONE (14:23)
[2024-02-29 20:13] VITALS: RESP 17
[2024-03-02 08:10] VITALS: BP 131/85; PULSE 100; RESP 16; TEMP 96.8; O2SAT 97
[2024-03-02 20:14] VITALS: BP 131/80; PULSE 105; RESP 18; TEMP 97.4
[2024-03-03 08:06] VITALS: BP 135/76; PULSE 98; RESP 17; TEMP 97; O2SAT 99
[2024-03-04 08:33] VITALS: BP 130/71; RESP 17; TEMP 98; O2SAT 97
[2024-03-04 20:53] VITALS: BP 141/83; PULSE 100; RESP 18; TEMP 97.4; O2SAT 97
[2024-03-05 08:17] VITALS: BP 114/65; PULSE 90; RESP 16; TEMP 97.9; O2SAT 98
[2024-03-05 22:42] VITALS: BP 109/66; PULSE 96; RESP 18; TEMP 97.8; O2SAT 99
[2024-03-06 08:03] VITALS: BP 122/79; PULSE 92; RESP 16; TEMP 97.6; O2SAT 98
[2024-03-06 20:07] VITALS: BP 113/61; PULSE 80; RESP 17; TEMP 96.4; O2SAT 100
[2024-03-07 08:07] VITALS: BP 118/74; PULSE 79; RESP 16; TEMP 97.6; O2SAT 99
[2024-03-07] MEDS: MAGNESIUM HYDROXIDE SUSPENSION 30 ML UDCUP PO PRN (08:12)
[2024-03-07 20:05] VITALS: BP 124/72; PULSE 91; RESP 16; TEMP 97.5; O2SAT 98
[2024-03-08 08:13] VITALS: BP 131/65; PULSE 98; RESP 16; TEMP 97.6; O2SAT 98
[2024-03-08 20:11] VITALS: BP 120/59; PULSE 83; RESP 18; TEMP 97.9; O2SAT 98
[2024-03-09 08:22] VITALS: RESP 16
[2024-03-09 20:07] VITALS: BP 105/67; PULSE 87; RESP 16; TEMP 97.3; O2SAT 97
[2024-03-10 08:04] VITALS: BP 125/65; PULSE 76; RESP 16; TEMP 97.4; O2SAT 97
[2024-03-10] MEDS: BENZTROPINE MESYLATE 2 MG TABLET PO PRN (10:41)
[2024-03-10 20:36] VITALS: BP 111/75; PULSE 89; RESP 16; TEMP 97.6; O2SAT 98
[2024-03-11 08:19] VITALS: BP 110/64; PULSE 99; RESP 16; TEMP 97.4; O2SAT 99
[2024-03-11] MEDS ORDERED: DIVA-85 PO (17:50)
[2024-03-11] MEDS ORDERED: CHLO100T42 PO (17:50)
[2024-03-11] MEDS ORDERED: MELA5TAB40 PO (17:50)
[2024-03-11] MEDS ORDERED: LITH8SOL8 PO (17:50)
[2024-03-11] MEDS ORDERED: NALT50TA33 PO (17:50)
[2024-03-11 20:15] VITALS: BP 102/60; PULSE 99; RESP 17; TEMP 97.8; O2SAT 99
[2024-03-12 08:07] VITALS: BP 106/60; PULSE 93; RESP 17; TEMP 96.8; O2SAT 99
== END 2024-03-12 10:31 | disposition home or self-care (01) | DRG 750 ==
LOC: EMS 11:18 → B3A 18:39
PROVIDERS: ADMIT Psychiatry & Neurology Psychiatry; ATTEND Psychiatry & Neurology Psychiatry
PROC: GZHZZZZ Group Psychotherapy (ICD-10-PCS; principal; 2024-02-12)
PROC: GZ51ZZZ Individual Psychotherapy, Behavioral (ICD-10-PCS; 2024-02-12)
DX: F25.0 Schizoaffective disorder, bipolar type (principal); G93.41 Metabolic encephalopathy; E87.6 Hypokalemia; Z20.822 Contact with and (suspected) exposure to COVID-19; Z59.00 Homelessness unspecified; Z87.891 Personal history of nicotine dependence; Z91.148 Patient's other noncompliance with medication regimen for other reason; Z91.410 Personal history of adult physical and sexual abuse
CPT/HCPCS: 80048; 84702; 85025; G0480; J1200; J1630; J2060; J3230

== ENCOUNTER 2024-04-07 12:51 | Inpatient (IN) | payer MEDICAID ==
[~2024-04-07] VITALS: Ht 165.1 cm; Wt 66.4 kg
[~2024-04-07 12:51] MED LIST changes: +CHLO100T42 PO; +DIVA-85 PO; -LITH300C3 PO; +LITH8SOL8 PO; +MELA5TAB40 PO; +NALT50TA33 PO; -RISP0.5T39 PO
[2024-04-07] MEDS ORDERED: LITH450T25 PO (13:11)
[2024-04-07] MEDS: HALOPERIDOL LACTATE 5 MG/ML VIAL IM ONE (13:20)
[2024-04-07] MEDS: LORazepam 2 MG/ML VIAL IM ONE (13:21)
[2024-04-07] MEDS: DiphenhydrAMINE HCL 50 MG/ML VIAL IM ONE (13:21)
[2024-04-07 14:07] LABS: BASOPHILS % (AUTO) 0.8 % (0.0-2.0); EOSINOPHILS % (AUTO) 0.4 % (1.0-6.0); HEMATOCRIT 36.6 % (36-46); HEMOGLOBIN 12.4 g/dL (12.0-16.0); LYMPHOCYTES # (AUTO) 1.9 K/uL (1.0-4.8); LYMPHOCYTES % (AUTO) 19.8 % (22.0-44.0); MEAN CORPUSCULAR HEMOGLOBIN 30.5 pg (26.0-34.0); MEAN CORPUSCULAR VOLUME 90 fL (80-100); MONOCYTES # (AUTO) 0.7 K/uL (0.1-1.0); NEUTROPHILS # (AUTO) 6.9 K/uL (1.8-7.7); PLATELET COUNT (AUTO) 277 K/uL (150-450); RED BLOOD CELL COUNT(AUTO) 4.07 MIL/uL (4.00-5.20); RED CELL DISTRIBUTION WIDTH 13.3 % (11.5-14.5); WHITE BLOOD COUNT (AUTO) 9.6 K/uL (4.5-11.0)
[2024-04-07 14:17] LABS: ANION GAP 8 mmol/L (8-16); CALCIUM, TOTAL 8.5 mg/dL (8.8-10.5); CARBON DIOXIDE 27 mmol/L (22-29); CHLORIDE 105 mmol/L (98-107); CREATININE 0.79 mg/dL (0.60-1.30); GLOMERULAR FILTR. RATE CALC > 60 mL/min (>60); GLUCOSE,RANDOM 97 mg/dL (70-110); POTASSIUM 3.3 mmol/L (3.5-5.1); SODIUM SERUM 140 mmol/L (136-145); UREA NITROGEN, BLOOD 10 mg/dL (7-18)
[2024-04-07 15:03] LABS: ALCOHOL, BLOOD (SERUM) < 3 mg/dL (0-10)
[2024-04-07 15:49] LABS: COVID AG,FIA SOURCE NASAL SWAB
[2024-04-07 16:07] LABS: SARS-COV2 (COVID) ANTIGEN,FIA Negative (Negative)
[2024-04-07] MEDS: POTASSIUM CHLORIDE 20 MEQ ER TABLET PO ONE (18:12)
[2024-04-07 19:26] VITALS: O2SAT 98
[2024-04-07] MEDS ORDERED: MELATONIN 5 MG TABLET PO PRN (22:45)
[2024-04-07] MEDS ORDERED: ChlorproMAZINE HCL 100 MG TABLET PO PRN (22:45)
[2024-04-07] MEDS ORDERED: BENZTROPINE MESYLATE 2 MG TABLET PO PRN (22:45)
[2024-04-08 00:07] VITALS: BP 133/86; PULSE 96; RESP 18; TEMP 98.3; O2SAT 96
[2024-04-08 00:15] VITALS: BP 134/86; PULSE 94; RESP 18; TEMP 97.6; O2SAT 98
[2024-04-08] MEDS ORDERED: INFLUENZA VIRUS VACCINE TVS (6MO+) 2024-25/PF 45 MCG/0.5 ML SYRINGE IM. ONE (02:15)
[2024-04-08 08:12] VITALS: BP 122/69; PULSE 75; RESP 16; TEMP 96.7; O2SAT 97
[2024-04-08] MEDS: RisperiDONE 1 MG TABLET PO SCH (09:55)
[2024-04-08] MEDS ORDERED: LOPERAMIDE HCL 2 MG CAPSULE PO PRN (12:00)
[2024-04-08] MEDS ORDERED: MAG HYDROX/ALUMINUM HYD/SIMETH ES 30 ML SUSPENSION UDCUP PO PRN (12:00)
[2024-04-08] MEDS ORDERED: HydrOXYzine PAMOATE 50 MG CAPSULE PO PRN (12:00)
[2024-04-08] MEDS ORDERED: GuaiFENesin/D-METHORPHAN [SUGAR-FREE] 200-20MG/10 ML SYRUP UDCUP PO PRN (12:00)
[2024-04-08] MEDS ORDERED: ACETAMINOPHEN 325 MG TABLET PO PRN (12:00)
[2024-04-08] MEDS ORDERED: PROMETHAZINE HCL 25 MG TABLET PO PRN (12:00)
[2024-04-08] MEDS: THIAMINE 100 MG TABLET PO SCH (16:04)
[2024-04-08] MEDS: DIVALPROEX SODIUM 250 MG ER TABLET PO SCH (20:15)
[2024-04-08] MEDS: MELATONIN 5 MG TABLET PO SCH (20:15)
[2024-04-08] MEDS: ChlorproMAZINE HCL 100 MG TABLET PO SCH (20:15)
[2024-04-08] MEDS: LITHIUM CITRATE SOLUTION 8 MEQ/5 ML [8 MEQ = 300 MG] UDCUP PO SCH (20:15)
[2024-04-08 20:17] VITALS: RESP 18; O2SAT 98
[2024-04-09 08:12] VITALS: RESP 16
[2024-04-09] MEDS: FOLIC ACID 1 MG TABLET PO SCH (09:00)
[2024-04-09] MEDS: NALTREXONE HCL 50 MG TABLET PO SCH (09:00)
[2024-04-09] MEDS: MULTIVITAMINS WITH MINERALS, THERAPEUTIC TABLET PO SCH (09:00)
[2024-04-09 20:00] VITALS: BP 105/61; PULSE 90; RESP 16; TEMP 97.4; O2SAT 99
[2024-04-10 08:43] VITALS: RESP 17
[2024-04-10] MEDS: HALOPERIDOL LACTATE 5 MG/ML VIAL IM ONE (10:08)
[2024-04-10] MEDS: LORazepam 2 MG/ML VIAL IM ONE (10:08)
[2024-04-10] MEDS: DiphenhydrAMINE HCL 50 MG/ML VIAL IM ONE (10:09)
[2024-04-10] MEDS: BENZTROPINE MESYLATE 2 MG TABLET PO SCH (17:00)
[2024-04-11 08:10] VITALS: BP 113/66; PULSE 73; RESP 16; TEMP 96.7; O2SAT 98
[2024-04-12 08:17] VITALS: BP 126/97; PULSE 93; RESP 16; TEMP 96.9; O2SAT 99
[2024-04-12 20:34] VITALS: RESP 17
[2024-04-13 08:09] VITALS: BP 105/65; PULSE 93; RESP 16; TEMP 97.8; O2SAT 98
[2024-04-13 20:02] VITALS: RESP 16
[2024-04-14 08:45] VITALS: BP 116/66; PULSE 84; RESP 16; O2SAT 96
[2024-04-14 20:01] VITALS: BP 109/63; PULSE 85; RESP 18; TEMP 98
[2024-04-15 08:26] VITALS: RESP 18
[2024-04-15] MEDS ORDERED: LORazepam 2 MG/ML VIAL ONE (18:21)
[2024-04-15] MEDS: HALOPERIDOL LACTATE 5 MG/ML VIAL IM ONE (18:43)
[2024-04-15] MEDS: LORazepam 2 MG/ML VIAL IM ONE (18:44)
[2024-04-15] MEDS: DiphenhydrAMINE HCL 50 MG/ML VIAL IM ONE (18:44)
[2024-04-15 19:00] VITALS: BP 129/89; PULSE 95; RESP 19; TEMP 97.5
[2024-04-15 22:30] VITALS: RESP 17
[2024-04-15 22:50] VITALS: BP 124/70; PULSE 64; RESP 17
[2024-04-16 08:35] VITALS: BP 113/84; PULSE 74; RESP 16; TEMP 96.9; O2SAT 98
[2024-04-16] MEDS: RisperiDONE MICROSPHERES 50 MG/2 ML SYRINGE IM ONE (17:10)
[2024-04-16 20:11] VITALS: BP 138/79; PULSE 110; RESP 17; TEMP 97.4; O2SAT 99
[2024-04-17 07:59] VITALS: BP 136/89; PULSE 91; RESP 16; TEMP 97.8; O2SAT 99
[2024-04-17 10:59] VITALS: RESP 18
[2024-04-17] MEDS: ChlorproMAZINE HCL 100 MG TABLET PO SCH (16:38)
[2024-04-17] MEDS: ChlorproMAZINE HCL 50 MG/2 ML AMP IM ONE (17:48)
[2024-04-17] MEDS: DiphenhydrAMINE HCL 50 MG/ML VIAL IM ONE (17:48)
[2024-04-17] MEDS: LORazepam 2 MG/ML VIAL IM ONE (17:48)
[2024-04-17] MEDS: HALOPERIDOL LACTATE 5 MG/ML VIAL IM PRN (21:34)
[2024-04-17 23:52] VITALS: RESP 16
[2024-04-18 08:28] VITALS: RESP 18
[2024-04-18 20:17] VITALS: BP 137/87; PULSE 98; RESP 18; TEMP 97.7; O2SAT 99
[2024-04-19 08:09] VITALS: RESP 18
[2024-04-19 09:02] VITALS: BP 118/73; PULSE 100; RESP 18; TEMP 96.7; O2SAT 97
[2024-04-19 20:04] VITALS: RESP 16; TEMP 97.1
[2024-04-20 08:28] VITALS: BP 121/68; PULSE 89; RESP 17; TEMP 98; O2SAT 97
[2024-04-20 20:18] VITALS: BP 114/70; PULSE 87; RESP 17; TEMP 97.8; O2SAT 98
[2024-04-21 08:00] VITALS: BP 103/61; PULSE 92; RESP 16; TEMP 98.6; O2SAT 99
[2024-04-21 20:02] VITALS: BP 115/76; PULSE 90; RESP 17; TEMP 97.6; O2SAT 97
[2024-04-22 09:14] VITALS: BP 100/60; PULSE 87; RESP 18; TEMP 98; O2SAT 100
[2024-04-22 22:24] VITALS: BP 105/71; PULSE 85; RESP 16; TEMP 97.9; O2SAT 99
[2024-04-23 08:35] VITALS: BP 101/65; PULSE 92; RESP 18; TEMP 97.5; O2SAT 98
[2024-04-23] MEDS ORDERED: DIVA-85 PO (14:19)
[2024-04-23 20:02] VITALS: BP 120/71; PULSE 102; RESP 18; TEMP 97.6; O2SAT 99
[2024-04-23] MEDS: ChlorproMAZINE HCL 100 MG TABLET PO SCH (20:38)
[2024-04-24 08:00] VITALS: BP 114/62; PULSE 92; RESP 17; TEMP 97.7; O2SAT 100
[2024-04-24] MEDS: VALPROIC ACID 250 MG/5 ML SOLUTION UDCUP PO SCH (20:13)
[2024-04-24 22:06] VITALS: BP 119/69; PULSE 88; RESP 17; TEMP 97.5
[2024-04-25 08:30] VITALS: BP 97/59; PULSE 120; RESP 18; TEMP 97.5
[2024-04-25 19:32] VITALS: BP 120/69; PULSE 85; RESP 18; TEMP 97.8
[2024-04-26] MEDS: DOCUSATE SODIUM 250 MG CAPSULE PO SCH (09:00)
[2024-04-26 09:14] VITALS: RESP 18
[2024-04-26 20:07] VITALS: BP 118/63; PULSE 102; RESP 18; TEMP 97.6; O2SAT 99
[2024-04-26] MEDS: DIVALPROEX SODIUM 250 MG ER TABLET PO SCH (20:58)
[2024-04-26] MEDS: NALTREXONE HCL 50 MG TABLET PO SCH (20:58)
[2024-04-27 09:26] VITALS: RESP 18
[2024-04-27 20:33] VITALS: BP 119/65; PULSE 97; RESP 18; TEMP 97.4; O2SAT 99
[2024-04-28 08:16] VITALS: BP 102/53; PULSE 81; RESP 18; TEMP 98; O2SAT 100
[2024-04-28 20:08] VITALS: BP 96/58; PULSE 60; RESP 16; TEMP 97.4; O2SAT 99
[2024-04-29 08:21] VITALS: BP 102/63; PULSE 79; RESP 16; TEMP 96.9; O2SAT 97
[2024-04-29] MEDS: RisperiDONE ER SUSPENSION 100 MG/0.28 ML PRE-FILLED SYRINGE SQ ONE (17:44)
[2024-04-29 21:00] VITALS: BP 126/75; PULSE 81; RESP 16; TEMP 97.3; O2SAT 99
[2024-04-30 08:07] VITALS: BP 105/60; PULSE 85; RESP 16; TEMP 97; O2SAT 98
[2024-04-30] MEDS ORDERED: RisperiDONE MICROSPHERES 50 MG/2 ML SYRINGE IM SCH (09:00)
[2024-04-30] MEDS ORDERED: BENZ2TAB84 PO (13:44)
[2024-04-30] MEDS ORDERED: RISP100S IM (13:44)
[2024-06-28] MEDS ORDERED: RisperiDONE ER SUSPENSION 100 MG/0.28 ML PRE-FILLED SYRINGE SQ SCH (09:00)
== END 2024-04-30 18:47 | disposition home or self-care (01) | DRG 750 ==
LOC: EMS 12:51 → B3A 20:59
PROVIDERS: ADMIT Psychiatry & Neurology Psychiatry; ATTEND Psychiatry & Neurology Psychiatry
PROC: GZHZZZZ Group Psychotherapy (ICD-10-PCS; principal; 2024-04-08)
PROC: GZ56ZZZ Individual Psychotherapy, Supportive (ICD-10-PCS; 2024-04-08)
DX: F25.0 Schizoaffective disorder, bipolar type (principal); R45.851 Suicidal ideations; Z91.148 Patient's other noncompliance with medication regimen for other reason; E87.6 Hypokalemia; F94.0 Selective mutism; Z60.8 Other problems related to social environment; F41.9 Anxiety disorder, unspecified; Z20.822 Contact with and (suspected) exposure to COVID-19; Z56.0 Unemployment, unspecified; Z91.011 Allergy to milk products; Z59.9 Problem related to housing and economic circumstances, unspecified; Z63.9 Problem related to primary support group, unspecified; Z65.3 Problems related to other legal circumstances; Z87.891 Personal history of nicotine dependence; Z55.9 Problems related to education and literacy, unspecified
CPT/HCPCS: 80048; 84132; 85025; 99285; G0480; J1200; J1630; J2060; J2794; J3230

== ENCOUNTER 2024-09-11 04:12 | Inpatient (IN) | payer MEDICAID ==
[~2024-09-11] VITALS: Ht 144.8 cm; Wt 64.1 kg
[~2024-09-11 04:12] MED LIST changes: +BENZ2TAB84 PO; -DIVA-85 PO; -LITH8SOL8 PO; -MELA5TAB40 PO; +RISP100S IM
[2024-09-11 05:14] VITALS: BP 117/64; PULSE 85; RESP 18; TEMP 98.6; O2SAT 97
[2024-09-11 06:08] VITALS: BP 114/77; PULSE 86; RESP 15; TEMP 98.1; O2SAT 98
[2024-09-11 08:29] VITALS: BP 113/82; PULSE 78; RESP 16; TEMP 97.4; O2SAT 97
[2024-09-11] MEDS: NALTREXONE HCL 50 MG TABLET PO SCH (12:00)
[2024-09-11] MEDS: BENZTROPINE MESYLATE 2 MG TABLET PO SCH (17:00)
[2024-09-11] MEDS ORDERED: ACETAMINOPHEN 325 MG TABLET PO PRN (17:30)
[2024-09-11] MEDS ORDERED: LOPERAMIDE HCL 2 MG CAPSULE PO PRN (17:30)
[2024-09-11] MEDS ORDERED: BACITRACIN 28 GM OINTMENT TP PRN (17:30)
[2024-09-11] MEDS ORDERED: PETROLATUM,WHITE 28 GM JELLY TP PRN (17:30)
[2024-09-11] MEDS ORDERED: OMEPRAZOLE 20 MG CAPSULE PO PRN (17:30)
[2024-09-11] MEDS ORDERED: IBUPROFEN 600 MG TABLET PO PRN (17:30)
[2024-09-11] MEDS ORDERED: ALBUTEROL SULFATE HFA 90 MCG/PUFF 8 GM INHALER IH PRN (17:30)
[2024-09-11] MEDS ORDERED: MAG HYDROX/ALUMINUM HYD/SIMETH ES 30 ML SUSPENSION UDCUP PO PRN (17:30)
[2024-09-11] MEDS ORDERED: ONDANSETRON 4 MG TABLET PO PRN (17:30)
[2024-09-11 20:00] VITALS: BP 126/73; PULSE 73; RESP 17; TEMP 97.4; O2SAT 98
[2024-09-12 08:11] VITALS: BP 106/63; PULSE 66; RESP 16; TEMP 97.6; O2SAT 97
[2024-09-12 20:47] VITALS: BP 116/79; PULSE 87; RESP 16; TEMP 97.3; O2SAT 99
[2024-09-13 08:04] VITALS: BP 109/63; PULSE 73; RESP 16; TEMP 96.9; O2SAT 98
[2024-09-13 08:39] LABS: PLATELET COUNT (AUTO) 299 K/uL (150-450); RED BLOOD CELL COUNT(AUTO) 4.70 MIL/uL (4.00-5.20); RED CELL DISTRIBUTION WIDTH 14.8 % (11.5-14.5); WHITE BLOOD COUNT (AUTO) 6.3 K/uL (4.5-11.0)
[2024-09-13 08:52] LABS: APPEARANCE,URINE HAZY (CLEAR); GLUCOSE, URINE (UA) NEGATIVE (NEGATIVE); LEUKOCYTE ESTERASE ,URINE NEGATIVE (NEGATIVE); NITRATE,URINE NEGATIVE (NEGATIVE); OCCULT BLOOD,URINE NEGATIVE (NEGATIVE); SPECIFIC GRAVITIY, URINE 1.009 (1.003-1.030)
[2024-09-13 20:20] VITALS: BP 111/62; PULSE 85; RESP 16; TEMP 97; O2SAT 98
[2024-09-14 08:17] VITALS: BP 105/67; PULSE 93; RESP 16; TEMP 97.3; O2SAT 99
[2024-09-14] MEDS: RisperiDONE ER SUSPENSION 100 MG/0.28 ML PRE-FILLED SYRINGE SQ ONE (16:48)
[2024-09-14] MEDS: ZOLPIDEM TARTRATE 10 MG TABLET PO PRN (21:20)
[2024-09-14 22:25] VITALS: BP 123/62; PULSE 75; RESP 16; TEMP 98.2; O2SAT 100
[2024-09-15 08:09] VITALS: BP 120/60; PULSE 82; RESP 16; TEMP 97.2; O2SAT 98
[2024-09-16 08:11] VITALS: BP 116/68; PULSE 83; RESP 16; TEMP 96.9; O2SAT 98
[2024-09-17 08:07] VITALS: BP 102/66; PULSE 68; RESP 16; TEMP 96.9; O2SAT 96
[2024-09-17 20:32] VITALS: BP 112/71; PULSE 109; RESP 16; TEMP 97.5; O2SAT 100
[2024-09-18 08:20] VITALS: BP 109/66; PULSE 73; RESP 16; TEMP 96.6; O2SAT 96
[2024-09-18 20:14] VITALS: BP 113/66; RESP 16; TEMP 97.2; O2SAT 100
[2024-09-19 08:13] VITALS: BP 129/71; PULSE 72; RESP 16; TEMP 96.9; O2SAT 96
[2024-09-19 08:15] VITALS: BP 101/67; PULSE 72; RESP 16; TEMP 96.3; O2SAT 96
[2024-09-19 20:52] VITALS: PULSE 75; RESP 18; TEMP 97.8; O2SAT 99
[2024-09-20 21:04] VITALS: RESP 18
[2024-09-21 08:23] VITALS: BP 107/72; PULSE 90; RESP 18; TEMP 98.1; O2SAT 99
[2024-09-21 20:07] VITALS: BP 138/88; PULSE 88; RESP 18; TEMP 97.4; O2SAT 100
[2024-09-22 08:06] VITALS: BP 124/66; PULSE 73; RESP 16; TEMP 97; O2SAT 97
[2024-09-22 20:21] VITALS: BP 129/90; PULSE 78; RESP 17; TEMP 97.7; O2SAT 100
[2024-09-23 08:01] VITALS: BP 112/66; PULSE 78; RESP 16; TEMP 96.9; O2SAT 99
[2024-09-23 20:08] VITALS: BP 117/75; PULSE 78; RESP 17; TEMP 97.8; O2SAT 98
[2024-09-23] MEDS: MAGNESIUM HYDROXIDE SUSPENSION 30 ML UDCUP PO PRN (21:49)
[2024-09-24 08:09] VITALS: RESP 17
[2024-09-24] MEDS: BENZOCAINE/MENTHOL [CEPACOL] LOZENGE PO PRN (08:54)
[2024-09-24 20:10] VITALS: BP 122/90; PULSE 82; RESP 17; TEMP 98.1; O2SAT 99
[2024-09-25 08:24] VITALS: BP 106/66; PULSE 79; RESP 16; TEMP 97.6; O2SAT 96
[2024-09-25 20:28] VITALS: BP 109/69; PULSE 86; RESP 16; TEMP 98; O2SAT 100
[2024-09-26 08:08] VITALS: BP 122/68; PULSE 99; RESP 16; TEMP 97.7; O2SAT 100
[2024-09-26 20:33] VITALS: BP 101/59; PULSE 99; RESP 17; TEMP 98.4; O2SAT 94
[2024-09-27 08:14] VITALS: BP 109/66; PULSE 76; RESP 16; TEMP 97.6; O2SAT 96
[2024-09-27 10:19] LABS: PH,URINE DRUG SCREEN 7.0 (5.0-8.0)
[2024-09-27 10:25] LABS: ALCOHOL, URINE DRUG SCREEN NEGATIVE (NEGATIVE); AMPHET/METH SCREEN,URINE NEGATIVE (NEGATIVE); BARBITURATE SCREEN, URINE NEGATIVE (NEGATIVE); CANNABINOID SCREEN,URINE NEGATIVE (NEGATIVE); COCAINE SCREEN,URINE NEGATIVE (NEGATIVE); METHADONE SCREEN, URINE NEGATIVE (NEGATIVE)
[2024-09-27 20:05] VITALS: BP 118/71; PULSE 94; RESP 17; TEMP 97.5; O2SAT 100
[2024-09-28 09:36] VITALS: RESP 18
[2024-09-28 20:57] VITALS: BP 144/97; PULSE 97; RESP 18; TEMP 97.9; O2SAT 99
[2024-09-29 09:24] VITALS: BP 110/80; PULSE 100; RESP 16; TEMP 98.4; O2SAT 98
[2024-09-29 20:53] VITALS: BP 109/67; PULSE 97; RESP 19; TEMP 97.1; O2SAT 99
[2024-09-30 08:14] VITALS: BP 116/69; PULSE 78; RESP 16; TEMP 96.9; O2SAT 97
[2024-09-30 20:24] VITALS: BP 113/72; PULSE 96; RESP 19; TEMP 97.9; O2SAT 100
[2024-10-01 08:22] VITALS: BP 102/66; PULSE 79; RESP 16; TEMP 96.9; O2SAT 97
[2024-10-01 20:17] VITALS: BP 107/86; PULSE 88; RESP 18; TEMP 97.7; O2SAT 100
[2024-10-02 08:14] VITALS: BP 109/64; PULSE 83; RESP 16; TEMP 96.8; O2SAT 97
[2024-10-02] MEDS: LORazepam 2 MG/ML VIAL IM ONE (19:11)
[2024-10-02 20:15] VITALS: BP 132/90; PULSE 91; RESP 18; TEMP 97.6; O2SAT 97
[2024-10-03 08:13] VITALS: RESP 16
[2024-10-03 20:00] VITALS: BP 108/76; PULSE 92; RESP 16; TEMP 97.5; O2SAT 98
[2024-10-04 09:37] VITALS: BP 94/63; PULSE 94; RESP 16; TEMP 97.3; O2SAT 90
[2024-10-04 20:24] VITALS: BP 118/83; PULSE 80; RESP 17; TEMP 98.4; O2SAT 92
[2024-10-05] MEDS: DOCUSATE SODIUM 100 MG CAPSULE PO PRN (13:23)
[2024-10-06 08:12] VITALS: BP 110/63; PULSE 78; RESP 16; TEMP 97.2; O2SAT 97
[2024-10-07 08:31] VITALS: BP 105/74; PULSE 100; RESP 17; TEMP 97.3; O2SAT 96
[2024-10-07 20:24] VITALS: BP 121/77; PULSE 95; RESP 16; TEMP 97.7; O2SAT 100
[2024-10-08 08:27] VITALS: BP 90/68; PULSE 94; RESP 16; TEMP 97.6; O2SAT 99
[2024-10-08 08:47] LABS: CALCIUM, TOTAL 9.2 mg/dL (8.8-10.5); CREATININE 0.81 mg/dL (0.60-1.30); GLOMERULAR FILTR. RATE CALC > 60 mL/min (>60); GLUCOSE,RANDOM 123 mg/dL (70-110); SODIUM SERUM 138 mmol/L (136-145); UREA NITROGEN, BLOOD 12 mg/dL (7-18)
[2024-10-08 21:35] VITALS: BP 120/82; PULSE 89; RESP 16; TEMP 97.2; O2SAT 97
[2024-10-09 08:20] VITALS: BP 90/64; PULSE 87; RESP 16; TEMP 97.5; O2SAT 100
[2024-10-10 08:00] VITALS: BP 109/78; PULSE 100; RESP 16; TEMP 97.4; O2SAT 100
[2024-10-10 20:24] VITALS: BP 116/73; PULSE 100; RESP 17; TEMP 96.5; O2SAT 100
[2024-10-11 08:11] VITALS: BP 103/75; PULSE 118; RESP 18; TEMP 97.3; O2SAT 98
[2024-10-11] MEDS: RisperiDONE ER SUSPENSION 100 MG/0.28 ML PRE-FILLED SYRINGE SQ SCH (08:30)
[2024-10-11 20:09] VITALS: BP 109/73; PULSE 91; RESP 18; TEMP 95.5; O2SAT 99
[2024-10-12 08:11] VITALS: BP 103/76; PULSE 100; RESP 17; TEMP 98; O2SAT 98
[2024-10-12 20:08] VITALS: BP 96/60; PULSE 88; RESP 18; TEMP 97.3; O2SAT 96
[2024-10-13 08:26] VITALS: BP 100/63; PULSE 83; RESP 17; TEMP 97.5; O2SAT 99
[2024-10-13 20:00] VITALS: BP 128/63; PULSE 103; RESP 16; TEMP 98.3; O2SAT 97
[2024-10-14 08:36] VITALS: BP 84/60; PULSE 66; RESP 16; TEMP 96.9; O2SAT 99
[2024-10-14 17:55] VITALS: BP 90/60; PULSE 80; RESP 18; TEMP 97
[2024-10-15 08:09] VITALS: BP 97/68; PULSE 106; RESP 18; TEMP 96.9; O2SAT 100
[2024-10-15 20:16] VITALS: BP 109/73; PULSE 100; RESP 18; TEMP 96.8; O2SAT 98
[2024-10-16 08:20] VITALS: BP 113/73; PULSE 90; RESP 17; TEMP 97.5; O2SAT 99
[2024-10-16 20:17] VITALS: BP 112/74; PULSE 98; RESP 18; TEMP 97.7; O2SAT 100
[2024-10-17 08:19] VITALS: BP 87/61; PULSE 107; RESP 16; TEMP 97.9; O2SAT 98
[2024-10-17 20:32] VITALS: BP 109/74; PULSE 86; RESP 17; TEMP 97.8; O2SAT 99
[2024-10-18 08:09] VITALS: BP 94/65; PULSE 100; RESP 16; TEMP 97.6; O2SAT 100
[2024-10-18 20:14] VITALS: BP 101/63; PULSE 108; RESP 17; TEMP 96.7; O2SAT 99
[2024-10-19 08:29] VITALS: BP 108/69; PULSE 98; RESP 18; TEMP 97.9; O2SAT 99
[2024-10-19 20:16] VITALS: BP 108/68; PULSE 95; RESP 17; TEMP 97.9; O2SAT 95
[2024-10-20 08:12] VITALS: BP 103/71; PULSE 100; RESP 16; TEMP 97.9; O2SAT 98
[2024-10-20 20:24] VITALS: BP 110/79; PULSE 102; RESP 17; TEMP 97.2; O2SAT 99
[2024-10-21 08:10] VITALS: BP 100/62; PULSE 93; RESP 16; TEMP 98.4; O2SAT 99
[2024-10-21 20:14] VITALS: BP 116/74; PULSE 86; RESP 17; TEMP 97.7; O2SAT 98
[2024-10-22 08:14] VITALS: BP 107/70; PULSE 100; RESP 16; TEMP 97.6; O2SAT 100
[2024-10-22 20:26] VITALS: BP 114/73; PULSE 101; RESP 17; TEMP 97.9; O2SAT 99
[2024-10-23 08:17] VITALS: RESP 16
== END 2024-10-23 14:45 | disposition left against medical advice (07) | DRG 750 ==
LOC: B3A 04:45
PROVIDERS: ADMIT Psychiatry & Neurology Child & Adolescent Psychiatry; ATTEND Psychiatry & Neurology Child & Adolescent Psychiatry
PROC: GZHZZZZ Group Psychotherapy (ICD-10-PCS; principal; 2024-09-11)
PROC: GZ52ZZZ Individual Psychotherapy, Cognitive (ICD-10-PCS; 2024-09-11)
PROC: GZ56ZZZ Individual Psychotherapy, Supportive (ICD-10-PCS; 2024-09-11)
DX: F25.0 Schizoaffective disorder, bipolar type (principal); F12.90 Cannabis use, unspecified, uncomplicated; I10 Essential (primary) hypertension; J45.909 Unspecified asthma, uncomplicated; F41.9 Anxiety disorder, unspecified; K59.00 Constipation, unspecified; G47.00 Insomnia, unspecified; Z53.29 Procedure and treatment not carried out because of patient's decision for other reasons; Z91.199 Patient's noncompliance with other medical treatment and regimen due to unspecified reason
CPT/HCPCS: 80048; 80307; 81003; 85025; J1200; J2060; J3230